=== PATIENT | female | born 1970 | race Caucasian/White ===

== ENCOUNTER 2022-06-02 20:03 | Emergency (ER) | payer MEDICAID ==
[2022-06-02 20:48] LABS: BASOPHILS # (AUTO) 0.1 10^3/uL (0.0-0.1); EOSINOPHILS # (AUTO) 0.2 10^3/uL (0.0-0.7); EOSINOPHILS % (AUTO) 2.1 %; HCT - HEMATOCRIT 45.4 % (37.0-47.0); HGB - HEMOGLOBIN 15.5 g/dL (12.0-16.0); LYMPHOCYTES # (AUTO) 3.1 10^3/uL (1.5-3.5); LYMPHOCYTES % (AUTO) 37.1 %; MEAN CORPUSCULAR HEMOGLOBIN 30.2 pg (27.0-31.0); MEAN CORPUSCULAR HGB CONC 34.1 g/dL (32.0-36.0); MEAN CORPUSCULAR VOLUME 88.5 fL (81.0-99.0); MEAN PLATELET VOLUME 9.4 fL (7.9-10.8); MONOCYTES # (AUTO) 0.6 10^3/uL (0.0-1.0); MONOCYTES % (AUTO) 6.7 %; NEUTROPHILS # (AUTO) 4.4 10^3/uL (1.5-6.6); NEUTROPHILS % (AUTO) 52.9 %; PLT - PLATELET COUNT 324 10^3/uL (130-450); RED BLOOD COUNT 5.13 10^6/uL (4.20-5.40); RED CELL DISTRIBUTION WIDTH 14.6 % (12.0-15.0); WHITE BLOOD COUNT 8.2 x10^3/uL (4.8-10.8)
[2022-06-02 20:59] LABS: ACETAMINOPHEN < 10 ug/mL (10-30); ALBUMIN 4.6 g/dL (3.2-5.5); ALBUMIN/GLOBULIN RATIO 1.2 (1.0-2.2); ALKALINE PHOSPHATASE 82 IU/L (42-121); ALT ALANINE AMINOTRANSFERASE 14 IU/L (10-60); AST ASPARTATE AMINOTRANSFERASE 20 IU/L (10-42); BILIRUBIN,TOTAL 0.5 mg/dL (0.2-1.0); BUN - BLOOD UREA NITROGEN 12 mg/dL (6-20); CALCIUM 9.3 mg/dL (8.5-10.3); CARBON DIOXIDE - CO2 26 mmol/L (21-32); CHLORIDE 103 mmol/L (101-111); CREATININE 0.6 mg/dL (0.4-1.0); ETOH - ETHANOL 239.2 mg/dL; GFR - MDRD 105 (>89); GLUCOSE 102 mg/dL (70-100); SALICYLATE < 6.0 mg/dL; SODIUM 139 mmol/L (135-145); TOTAL PROTEIN 8.5 g/dL (6.7-8.2)
--- NOTE | 2022-06-02 21:25 | ED Physician Documentation ---
History of Present Illness - Stated complaint Stated Complaint: ALCOHOL WITHDRAWLS - Chief complaint Chief Complaint: General - History obtained from History obtained from: Patient - History of Present Illness Timing: Today Pain level max: 0 Pain level now: 0 - Additonal information Additional information: 51-year-old female was attempting to check herself into alcohol detox today. [facility] told her she needed to come here for her blood alcohol level. She states her last drink was about three hours prior to arrival. She has never had seizures. Is not tremulous. Denies HI/SI Review of Systems Constitutional: denies: Fever Nose: denies: Rhinorrhea / runny nose Respiratory: denies: Dyspnea, Cough GI: denies: Abdominal Pain, Vomiting Skin: denies: Rash Neurologic: denies: Headache PD PAST MEDICAL HISTORY - Past Medical History Past Medical History: No - Allergies Allergies/Adverse Reactions: Allergies Allergy/AdvReac Type Severity Reaction Status Date / Time azithromycin Allergy Anaphylaxis Verified 06/02/22 20:19 Sulfa (Sulfonamide Allergy Unknown Verified 06/02/22 20:19 Antibiotics) metronidazole [From Flagyl] AdvReac Rash Verified 06/02/22 20:19 - Living Situation Living Situation: reports: With family Living Arrangement: reports: At home - Social History Does the pt drink ETOH?: Yes ETOH Use: Liquor Does the pt have substance abuse?: No - Family History Family history: reports: Non contributory PD ED PE NORMAL - Vitals Vital signs reviewed: Yes - General General: Alert and oriented X 3, No acute distress - HEENT HEENT: PERRL, Moist mucous membranes - Cardiac Cardiac: RRR - Respiratory Respiratory: No respiratory distress, Clear bilaterally - Abdomen Abdomen: Soft, Non tender, Non distended - Derm Derm: Warm and dry - Extremities Extremities: No edema - Neuro Neuro: Alert and oriented X 3 - Psych Psych: Normal mood, Normal affect Results - Vitals Vitals: Vital Signs - 24 hr 06/02/22 06/02/22 06/02/22 20:14 21:23 21:26 Temperature 36.6 C Heart Rate 89 Respiratory 18 16 16 Rate Blood Pressure 118/84 H O2 Saturation 97 06/02/22 21:29 Temperature 36.6 C Heart Rate 81 Respiratory 16 Rate Blood Pressure 120/72 O2 Saturation 98 Oxygen O2 Source Room air - Labs Labs: Laboratory Tests 06/02/22 06/02/22 20:39 20:39 WBC 8.2 RBC 5.13 Hgb 15.5 Hct 45.4 MCV 88.5 MCH 30.2 MCHC 34.1 RDW 14.6 Plt Count 324 MPV 9.4 Neut # (Auto) 4.4 Lymph # (Auto) 3.1 [place] # (Auto) 0.6 Eos # (Auto) 0.2 Baso # (Auto) 0.1 Absolute Nucleated RBC 0.00 Nucleated RBC % 0.0 Sodium 139 Potassium 4.0 Chloride 103 Carbon Dioxide 26 Anion Gap 10.0 BUN 12 Creatinine 0.6 Estimated GFR (MDRD) 105 Glucose 102 H Calcium 9.3 Total Bilirubin 0.5 AST 20 ALT 14 Alkaline Phosphatase 82 Total Protein 8.5 H Albumin 4.6 Globulin 3.9 Albumin/Globulin Ratio 1.2 Salicylates < 6.0 Acetaminophen < 10 L Ethyl Alcohol 239.2 PD MEDICAL DECISION MAKING - ED course Complexity details: reviewed results, considered differential, d/w patient ED course: Patient's blood alcohol level is below the 350 level that the detox facility needs. The patient has no complaints and will go back to detox at this time. Patient counseled regarding signs and symptoms for which I believe an urgent reevaluation would be needed. Patient with good understanding and agreement to plan. Patient comfortable going home at this time. Departure - Departure Disposition: 01 Home, Self Care Clinical Impression: Alcohol intoxication Qualifiers: Complication of substance-induced condition: uncomplicated Qualified Code(s): F10.920 - Alcohol use, unspecified with intoxication, uncomplicated Condition: Good Instructions: ED Alcohol Intoxication Follow-Up: Shan Brownlee MD [Primary Care Provider] - Comments: The patient is medically clear for alcohol care at your facility. Her alcohol level here is 0.239. Contact: [facility] [address] [place] [address] Fax: Discharge Date/Time: 06/02/22 21:29
[2022-06-02 21:30] VITALS: BP 120/72
== END 2022-06-02 21:29 | disposition home or self-care (01) ==
LOC: ED 20:03
DX: Z02.83 Encounter for blood-alcohol and blood-drug test (principal); F10.129 Alcohol abuse with intoxication, unspecified; Y90.7 Blood alcohol level of 200-239 mg/100 ml
CPT/HCPCS: 36415; 80053; 80307; 80320; 80329; 85025; 99281; 99283

== ENCOUNTER 2022-06-30 11:41 | Emergency (ER) | payer MEDICAID ==
[2022-06-30 11:53] VITALS: BP 123/74
--- NOTE | 2022-06-30 12:11 | ED Physician Documentation ---
History of Present Illness - Stated complaint Stated Complaint: NAUSEA/MED REFILL - Chief complaint Chief Complaint: General - History obtained from History obtained from: Patient - Additonal information Additional information: 51-year-old woman who recently moved here from [place] just got out of alcohol detox and presents requesting a refill of her antidepressants which she ran out of a couple of days ago and notes nausea related to withdrawal symptoms. She also has a non-itchy/nonpainful rash on the chin and upper chest. No SI or HI. Review of Systems Constitutional: denies: Fever, Chills Throat: reports: Reviewed and negative Cardiac: reports: Reviewed and negative Respiratory: reports: Reviewed and negative PD PAST MEDICAL HISTORY - Past Medical History Past Medical History: Yes Psych: Depression - Present Medications Home Medications: Ambulatory Orders Medication Instructions Recorded Confirmed Escitalopram [Lexapro] 20 mg PO DAILY #90 tablet 06/30/22 Hydrocortisone 1% Cream 1 applic TOP BID #28 gm 06/30/22 [Hydrocortisone] - Allergies Allergies/Adverse Reactions: Allergies Allergy/AdvReac Type Severity Reaction Status Date / Time azithromycin Allergy Anaphylaxis Verified 06/30/22 11:53 Sulfa (Sulfonamide Allergy Unknown Verified 06/30/22 11:53 Antibiotics) metronidazole [From Flagyl] AdvReac Rash Verified 06/30/22 11:53 - Social History Does the pt smoke?: Yes Smoking Status: Current every day smoker Does the pt drink ETOH?: Yes Does the pt have substance abuse?: No PD ED PE NORMAL - Vitals Vital signs reviewed: Yes - General General: Alert and oriented X 3, No acute distress - Derm Derm: Other (mild eczematous change to chin, probably from rubbing, which she is doing a lot) - Neuro Neuro: Alert and oriented X 3, Normal speech Results - Vitals Vitals: Vital Signs - 24 hr 06/30/22 11:49 Temperature 36.5 C Heart Rate 91 Respiratory 16 Rate Blood Pressure 123/74 O2 Saturation 97 Oxygen O2 Source Room air Departure - Departure Disposition: 01 Home, Self Care Clinical Impression: Depression, Dermatitis Condition: Good Record reviewed to determine appropriate education?: Yes Instructions: ED Depression Prescriptions: Hydrocortisone 1% Cream [Hydrocortisone] 1 applic TOP BID #28 gm Escitalopram [Lexapro] 20 mg PO DAILY #90 tablet Comments: Call your doctor to arrange a follow-up appointment, make the next available appointment. In the interim, return anytime if worse or if new symptoms develop.
== END 2022-06-30 12:24 | disposition home or self-care (01) ==
LOC: ED 11:41
DX: F32.A Depression, unspecified (principal); L30.9 Dermatitis, unspecified; F17.200 Nicotine dependence, unspecified, uncomplicated; Z76.0 Encounter for issue of repeat prescription
CPT/HCPCS: 99282